=== PATIENT | female | born 1950 | race Hispanic/Latino ===

== ENCOUNTER 2017-05-21 18:49 | Emergency (ER) | payer MEDICARE ==
[2017-05-21 19:01] VITALS: BMI 23.3
[2017-05-21 19:05] VITALS: BP 123/83; PULSE 76; RESP 18; TEMP 98; O2SAT 98
--- NOTE | 2017-05-21 19:34 | ED PDOC ---
Arrival/HPI - General Time Seen by Provider: 05/21/17 19:29 Historian: Patient - History of Present Illness Narrative History of Present Illness (Text): 05/21/17 19:31 66yo female with no PMhx who present with 2days history of sore throat. + Odynophagia. She denies dysphagia, nausea, vomiting, fever, chills, abdominal pain, sick contact, any other complaint. Past Medical History - Provider Review Nursing Documentation Reviewed: Yes Family/Social History - Physician Review Nursing Documentation Reviewed: Yes Family/Social History: Unknown Family HX Allergies/Home Meds Allergies/Adverse Reactions: Allergies No Known Allergies Allergy (Verified 05/21/17 19:01) Review of Systems - Physician Review All systems were reviewed & negative as marked: Yes - Review of Systems Constitutional: Normal Eyes: Normal ENT: Sore Throat Respiratory: Normal Cardiovascular: Normal Gastrointestinal: Normal Genitourinary Female: Normal Musculoskeletal: Normal Skin: Normal Neurological: Normal Endocrine: Normal Hemo/Lymphatic: Normal Psychiatric: Normal Physical Exam Vital Signs Reviewed: Yes Vital Signs Temp Pulse Resp BP Pulse Ox 05/21/17 19:04 98.0 F 76 18 123/83 98 Temperature: Afebrile Blood Pressure: Normal Pulse: Regular Respiratory Rate: Normal Appearance: Positive for: Well-Appearing, Non-Toxic, Comfortable Pain Distress: None Mental Status: Positive for: Alert and Oriented X 3 - Systems Exam Head: Present: Atraumatic, Normocephalic Pupils: Present: PERRL Extroacular Muscles: Present: EOMI Conjunctiva: Present: Normal Mouth: Present: Moist Mucous Membranes Pharnyx: Present: ERYTHEMA. No: EXUDATE, TONSILS ENLARGED, Peritonsilar Swelling, Uvular Deviation, Muffled/Hoarse Voice, Strider, Soft Palate/Uvular Edema Neck: Present: Normal Range of Motion Respiratory/Chest: Present: Clear to Auscultation, Good Air Exchange. No: Respiratory Distress, Accessory Muscle Use Cardiovascular: Present: Regular Rate and Rhythm, Normal S1, S2. No: Murmurs Abdomen: Present: Normal Bowel Sounds. No: Tenderness, Distention, Peritoneal Signs Back: Present: Normal Inspection Upper Extremity: Present: Normal Inspection. No: Cyanosis, Edema Lower Extremity: Present: Normal Inspection. No: Edema Neurological: Present: GCS=15, CN II-XII Intact, Speech Normal Skin: Present: Warm, Dry, Normal Color. No: Rashes Psychiatric: Present: Alert, Oriented x 3, Normal Insight, Normal Concentration Medical Decision Making - Medication Orders Current Medication Orders: Discontinued Medications Penicillin V Potassium (Penicillin Vk Tab) 500 mg PO STAT STA PRN Reason: Protocol Stop: 05/21/17 19:30 Disposition/Present on Arrival - Present on Arrival Any Indicators Present on Arrival: No History of DVT/PE: No History of Uncontrolled Diabetes: No Urinary Catheter: No History of Decub. Ulcer: No History Surgical Site Infection Following: None - Disposition Have Diagnosis and Disposition been Completed?: Yes Diagnosis: Acute pharyngitis Disposition: HOME/ ROUTINE Disposition Time: 19:35 Patient Plan: Discharge Condition: STABLE Discharge Instructions (ExitCare): Pharyngitis (ED) Additional Instructions: Follow up with your doctor Return to ED for any new or worsening symptoms Prescriptions: Penicillin VK [Penicillin VK Tab] 250 mg PO BID #40 tab Referrals: [facility] [place] [facility] [place] - Follow up with primary
== END 2017-05-21 19:55 | disposition home or self-care (01) ==
LOC: ED 18:49
DX: J02.9 Acute pharyngitis, unspecified (principal)

== ENCOUNTER 2018-05-22 13:13 | Emergency (ER) | payer MEDICARE ==
[2018-05-22 13:18] VITALS: BMI 24.3
[2018-05-22 13:23] VITALS: O2SAT 99
--- NOTE | 2018-05-22 13:41 | ED PDOC ---
Arrival/HPI - General Chief Complaint: Lower Extremity Problem/Injury Time Seen by Provider: 05/22/18 13:16 Historian: Patient - History of Present Illness Narrative History of Present Illness (Text): 05/22/18 13:40 67 year old female whose past medical history includes heart disease, s/p pacemaker, s/p coronary stent placement, who presents to the emergency department complaining of left thigh burning sensation for the past 2 weeks. Patient reports being on a 6 hour flight on 05/01/18. A week later she started experiencing a localized burning sensation in her left thigh, which she describes as a "bad sunburn". She denies any erythema or rash on her thigh, and states the pain has been migrating toward her left groin for the past few days. The burning sensation is exacerbated with walking. Patient also notes having back pain for the past week, and occasional left pedal numbness at night. Of note per patient, her pedal numbness was evaluated years ago. She denies taking any medications or blood thinners. Patient states no known family history of hypercoagulation. Patient denies fevers, chills, cough, shortness of breath, chest pain, dyspnea on exertion, abdominal pain, nausea, vomiting, diarrhea, neck pain, headache, dizziness, or any other complaint. 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: Time/Duration: > week Symptom Onset: Gradual Symptom Course: Unchanged, Other (migrating to left groin) Quality: Burning Activities at Onset: Rest Context: Standing (exacerbated with walking) Past Medical History - Provider Review Nursing Documentation Reviewed: Yes - Infectious Disease Hx of Infectious Diseases: None - Reproductive Menopause: Yes - Cardiac Hx Pacemaker: Yes (20 years ago) - Psychiatric Hx Substance Use: No - Anesthesia Hx Anesthesia Reactions: No Hx Malignant Hyperthermia: No Family/Social History - Physician Review Nursing Documentation Reviewed: Yes Family/Social History: denies: Other (hypercoagulation) Smoking Status: Never Smoked Hx Alcohol Use: No Hx Substance Use: No Allergies/Home Meds Allergies/Adverse Reactions: Allergies No Known Allergies Allergy (Verified 05/21/17 19:01) Review of Systems - Physician Review All systems were reviewed & negative as marked: Yes - Review of Systems Constitutional: absent: Fevers Respiratory: absent: SOB, Cough Cardiovascular: absent: Chest Pain, GASPAR Gastrointestinal: absent: Abdominal Pain, Constipation, Diarrhea, Nausea, Vomiting Musculoskeletal: Back Pain. absent: Neck Pain Skin: absent: Rash Neurological: absent: Headache, Dizziness Physical Exam Vital Signs Reviewed: Yes Vital Signs Temp Pulse Resp BP Pulse Ox 05/22/18 13:13 97.9 F 67 18 132/82 99 Temperature: Afebrile Blood Pressure: Normal Pulse: Regular Respiratory Rate: Normal Appearance: Positive for: Well-Appearing Mental Status: Positive for: Alert and Oriented X 3 - Systems Exam Head: Present: Atraumatic, Normocephalic Pupils: Present: PERRL Extroacular Muscles: Present: EOMI Conjunctiva: Present: Normal Mouth: Present: Moist Mucous Membranes Neck: Present: Normal Range of Motion Respiratory/Chest: Present: Clear to Auscultation, Good Air Exchange. No: Respiratory Distress, Accessory Muscle Use Cardiovascular: Present: Regular Rate and Rhythm, Normal S1, S2. No: Murmurs Abdomen: No: Tenderness, Distention, Peritoneal Signs Back: Present: Normal Inspection. No: Paraspinal Tenderness (lumbar region), Pain with Leg Raise Upper Extremity: Present: Normal Inspection. No: Cyanosis, Edema Lower Extremity: Present: Normal Inspection, NORMAL PULSES. No: Edema, Tenderness (No tenderness to palpation of anterior thigh or groin), Erythema (No erythema to left thigh) Neurological: Present: GCS=15, CN II-XII Intact, Speech Normal Skin: Present: Warm, Dry, Normal Color, Other (slight scar to left ankle, healed). No: Rashes (no rash to left thigh) Psychiatric: Present: Alert, Oriented x 3, Normal Insight, Normal Concentration Medical Decision Making ED Course and Treatment: 05/22/18 13:40 Impression: 67 year old female who is complaining of localized burning sensation to her left thigh for the past 2 weeks, which has been migrating toward her left groin the past few days. Differential Diagnosis included but are not limited to: DVT Superficial Thrombophlebitis Meralgia Paresthetica IT band syndrome. Plan: -- Valium -- Toradol -- Lidoderm -- Bilateral Lower Extremity Duplex Doppler -- Reassess and disposition Prior Visits: Notes and results from previous visits were reviewed. Progress Notes: 05/22/18 15:25 Reevaluation: On reevaluation the patient feels better and is in no acute distress. I have discussed the results and plan with the patient, who expresses understanding. Patient given the opportunity to ask question, all questions were answered and there is agreement with the plan to discharge the patient home with prescriptions given. Patient is stable for discharge. Patient was instructed to follow up with neurologist and vascular specialist in 1-2 days or return if symptoms persist/worsen or new concerning symptoms arise. - RAD Interpretation Narrative RAD Interpretations (Text): 05/22/18 15:22 Preliminary bilateral lower extremity doppler was negative. 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 I have reviewed the chart and agree that the record accurately reflects my personal performance of the history, physical exam, medical decision making, and the department course for this patient. I have also personally directed, reviewed, and agree with the discharge instructions and disposition. Disposition/Present on Arrival - Present on Arrival Any Indicators Present on Arrival: No History of DVT/PE: No History of Uncontrolled Diabetes: No Urinary Catheter: No History of Decub. Ulcer: No History Surgical Site Infection Following: None - Disposition Have Diagnosis and Disposition been Completed?: Yes Diagnosis: Leg pain, left, Back pain Disposition: HOME/ ROUTINE Disposition Time: 15:26 Patient Plan: Discharge Condition: IMPROVED Discharge Instructions (ExitCare): Muscle and Bone Pain (DC) Print Language: MICRONESIAN Additional Instructions: All medical record entries made by the Scribe were at my direction and personally dictated by me. I have reviewed the chart and agree that the record accurately reflects my personal performance of the history, physical exam, medical decision making, and the department course for this patient. I have also personally directed, reviewed, and agree with the discharge instructions and disposition. Prescriptions: Cyclobenzaprine [Cyclobenzaprine HCl] 10 mg PO PRN PRN #6 tab PRN Reason: Muscle Spasm Lidocaine 5% [Lidoderm] 1 ea TD Q12 #5 patch Naproxen [Naprosyn] 500 mg PO BID #10 tablet Referrals: Bj Santos MD [Staff Provider] - Follow up with primary Roberto Wilkins MD [Non-Staff] - [place] [facility] [place] [facility] [place] - Follow up with primary Devorah Guerra MD [Medical Doctor] - Follow up with primary Forms: [employer] (Swedish), WORK NOTE
[2018-05-22] MEDS ORDERED: Lidocaine 5% Patch TD ONE (13:56)
[2018-05-22 15:53] VITALS: BP 128/76; PULSE 70; RESP 16; TEMP 98
--- NOTE | 2018-05-23 18:34 | US ---
HISTORY: Leg pain and swelling. Evaluate for DVT PHYSICIAN(S): Roberto Monet MD. TECHNIQUE: Duplex sonography and color-flow Doppler with graded compression were used to evaluate the deep venous systems of both lower extremities. FINDINGS: The visualized deep venous systems of both lower extremities are sonographically normal and compressible. Normal wave forms and augmentation are seen. There is no sonographic evidence for deep venous thrombosis in the visualized segments of both lower extremities. IMPRESSION: No sonographic evidence for deep venous thrombosis in the visualized segments of both lower extremities.
== END 2018-05-22 15:53 | disposition home or self-care (01) ==
LOC: ED 13:13
DX: M79.605 Pain in left leg (principal); M54.9 Dorsalgia, unspecified; Z95.0 Presence of cardiac pacemaker; Z95.5 Presence of coronary angioplasty implant and graft
CPT/HCPCS: 93970; 96372; 99283; J1885